=== PATIENT | male | born 1970 | race Caucasian/White ===

== ENCOUNTER → 2016-11-11 | Outpatient (CLI) | payer MEDICARE, BC, OTHER ==
[~2016-11-11] MED LIST: ALBUTEROL17 GM INH; ALPRAZOLAM PO; EC-NAPROSYN500 MG PO; FLEXERIL PO; FLEXERIL10 MG PO; IBUPROFEN PO; KETOPROFEN PO; LITHIUM PO; LORTAB 10-5001 EACH PO; LORTAB 5/500 TA1 TA1 PO; LORTAB 7.5-5001 TAB PO; MEDROL PO; MEDROL4 MG/DOSE- PO; MOTRIN600 MG PO; PAXIL PO; PRILOSEC20 MG PO; SKELAXIN PO; TRAZODONE PO; ULTRAM PO; VICODIN 5/500 T1 TAB PO; VICODIN PO; XANAX1 MG PO; [UNRECOGNIZED DRUG - OTHER] PO; [UNRECOGNIZED DRUG - OTHER] PO; [UNRECOGNIZED DRUG - REMARK]
--- NOTE | ~2016-11-11 | CT92 ---
[facility] A Service of [facility] & [facility] RADIOLOGY TEXT RESULTS PATIENT: WILLIAM LAZCANO JR LOCATION: [facility] : 66 UNIT #: [id number] AGE: [address]: Marilynn Guerra SEX: M ORDER DR: [id number] [facility] [address] [place], [place] [address] [id number] O MR#: [id number] Acc #: [id number] NAME: WILLIAM LAZCANO : 1970 SEX: M STUDY DATE/TIME: 11/11/2016 UNIT: [facility] ROOM: STUDY DESCRIPTION: CT Lower Ext Lt Wo Cont Attending Physician: Marilynn Guerra P.A.-C. Referring Physician: Marilynn Guerra P.A.-C. Ordering Physician: Marilynn Guerra P.A.-C. Primary Care Physician: Jill Roche A.P.R.N. MEDICAL IMAGING REPORT This report is preliminary unless electronic signature is present EXAM CT left ankle and hindfoot without contrast, 11/11/2016 COMPARISON Left calcaneus radiographs 09/21/2016, CT left ankle and hindfoot 07/02/2016. HISTORY Order states CT scan bilateral heels. Bilateral calcaneal fractures, assess healing. History sheet states fell August 14, 2016 and landed on heels. Bilateral calcaneal fractures. Check for further injury and healing. No heel surgery. Left leg surgery 2011 for a crush injury. TECHNIQUE This CT exam was performed with one or more of the following radiation dose reduction techniques: automatic exposure control, adjustment of mA and/or kV according to patient size, and iterative reconstruction. FINDINGS There is a healing fracture of the body of the calcaneus with a dominant vertical oblique fracture line from posteromedial to anterolateral. Fracture involves the medial aspect of the posterior facet where there is a minimal 1 mm to 2 mm depression and persistent recent widening along the fracture line. The middle subtalar joint is normal with no sustentacular involvement. There is incomplete healing of the medial cortical body fracture posteriorly located with some lucency persisting along the fracture line. Compared to 07/02/2016, the fracture is estimated at approximately 50% healed. There is no significant varus deformity. There is no calcaneal collapse. Tarsal bones are normal. [facility] A Service of [facility] RADIOLOGY TEXT RESULTS PATIENT: WILLIAM LAZCANO JR LOCATION: [facility] : 66 UNIT #: [id number] AGE: [address]: Marilynn Guerra SEX: M ORDER DR: There is soft tissue edema. No tendon pathology or tendon entrapment is identified. IMPRESSION The left calcaneal fracture is estimated at approximately 50% healed. Involvement of the posterior facet with minimal articular depression is noted. Persistent lucency along the medial body and posterior facet fracture line are noted. Healing is relatively complete along the lateral side. Dictated by... Renuka Paredes M.D. THIS IS AN ELECTRONICALLY VERIFIED REPORT Renuka Paredes M.D. at 11/15/2016 10:51 AM AMAYA/tramaine TD: 11/15/2016 01:15 JOB #: [id number] MEDICAL IMAGING REPORT COPY
--- NOTE | ~2016-11-11 | CT95 ---
[facility] A Service of [facility] & [facility] RADIOLOGY TEXT RESULTS PATIENT: WILLIAM LAZCANO JR LOCATION: [facility] : 66 UNIT #: [id number] AGE: [address]: Marilynn Guerra SEX: M ORDER DR: [id number] [facility] [address] [place], [place] [address] [id number] O MR#: [id number] [facility] #: [id number] NAME: WILLIAM LAZCANO : 1970 SEX: M STUDY DATE/TIME: 11/11/2016 UNIT: [facility] ROOM: STUDY DESCRIPTION: CT Lower Ext Rt Wo Cont Attending Physician: Marilynn Guerra P.A.-C. Referring Physician: Marilynn Guerar P.A.-C. Ordering Physician: Marilynn Guerra P.A.-C. Primary Care Physician: Jill Roche A.P.R.N. MEDICAL IMAGING REPORT This report is preliminary unless electronic signature is present EXAM CT right ankle and foot with coronal and sagittal reconstructions without contrast, 11/11/2016 HISTORY Order states bilateral calcaneal fractures. Assess healing. Date of injury 06/21/2016. History sheet states fell 06/24/2016. Landed on heels and broke bilateral calcaneus. Previous right foot fifth metatarsal surgery 9 years ago for twist injury and fracture. COMPARISON Right foot radiographs 09/21/[address] right ankle and foot 07/02/2016. TECHNIQUE This CT exam was performed with one or more of the following radiation dose reduction techniques: automatic exposure control, adjustment of mA and/or kV according to patient size, and iterative reconstruction. FINDINGS There is a healing comminuted fracture of the calcaneus detailed on the prior report. Fracture lines are all healing. There is no involvement of the posterior subtalar joint. The middle subtalar joint is anatomic. The vertical fracture through the base of the sustentaculum talus has healed. The vertical longitudinal fracture of the lateral body of the calcaneus is incompletely healed superiorly in the region of the lateral aspect of the sinus tarsi where there is mild depression. Fracture is estimated at least 75% healed. There is ossification in the region of the inferior extensor retinaculum. Midfoot alignment is normal. There is a healed fracture of the distal fifth metatarsal with hardware. [facility]. [facility] A Service of [facility] & [facility] RADIOLOGY TEXT RESULTS PATIENT: WILLIAM LAZCANO JR LOCATION: [facility] : 66 UNIT #: [id number] AGE: [address]: Marilynn Guerra SEX: M ORDER DR: No tendon pathology or entrapment is noted. IMPRESSION 1. The right calcaneal fracture is estimated at 75% healed with minimal deformity detailed above. 2. Healed fracture distal shaft fifth metatarsal is again noted. Dictated by... Renuka Paredes M.D. THIS IS AN ELECTRONICALLY VERIFIED REPORT Renuka Paredes M.D. at 11/15/2016 10:51 AM AMAYA/tramaine TD: 11/15/2016 01:05 JOB #: [id number] MEDICAL IMAGING REPORT COPY
== END | disposition home or self-care (01) ==
LOC: CCAT 14:01
DX: S92.001D Unspecified fracture of right calcaneus, subsequent encounter for fracture with routine healing (principal); S92.002D Unspecified fracture of left calcaneus, subsequent encounter for fracture with routine healing
CPT/HCPCS: 73700